=== PATIENT | female | born 1970 | race Caucasian/White ===

== ENCOUNTER → 2016-09-10 | Outpatient (CLI) | payer SELFPAY | LOC: LAB.REF 15:41 | PROVIDERS: ATTEND Internal Medicine | DX: E03.8 Other specified hypothyroidism (principal); E04.2 Nontoxic multinodular goiter ==

== ENCOUNTER → 2017-05-20 | Outpatient (CLI) | payer OTHER ==
--- NOTE | 2017-05-20 12:47 | MRI ---
EXAM DESCRIPTION: Shoulder,Left: MRI. CLINICAL HISTORY: SHOULDER PAIN COMPARISON: None. TECHNIQUE: Multiplanar, high-field MRI, multiple sequences, without contrast: Left shoulder. FINDINGS: Intermediate signal in the distal supraspinatus and infraspinatus insertions. No fluid signal in the proximal tendons. Minimal fluid in the subacromial-subdeltoid bursa. Normal signal in the remaining tendons of the rotator cuff. Cortical erosions on the posterior greater tuberosity and cysts in the posterior subcapital humeral neck. No rotator cuff muscle atrophy. Subcoracoid bursal fluid. Type II curvature of the lateral acromion. Minimal downsloping of the lateral acromion. No significant arthrosis in the AC joint. Minimal flattening of the lateral coracoacromial arch. Coracoid ligaments intact. No glenohumeral joint effusion. Question of a subchondral cyst at the anterior articular surface of the humeral head. No osteochondrosis in the glenoid. Posterior position of the bicipital labral anchor; long head biceps tendon within the bicipital groove. Chondromalacia central glenoid fossa. No labral tear. IMPRESSION: 1. Tendinopathy distal supraspinatus and infraspinatus tendons with no rotator cuff tear. No muscle atrophy. Minimal bursitis subacromial-subdeltoid bursa. 2. Subcoracoid bursitis. Minimal flattening of the lateral coracoacromial arch most likely due to acromion morphology. 3. No glenoid labrum tear. Chondromalacia central glenoid cartilage. Possible subchondral cyst anterior articular surface of the humeral head. If these findings are discordant from clinical findings, consider MR arthrography of the left shoulder. Electronically signed by: Fred Watts MD 05/20/2017 12:46 PM CDT
== END | disposition home or self-care (01) ==
LOC: MRI 06:58
PROVIDERS: ATTEND Nurse Practitioner Family
DX: M75.52 Bursitis of left shoulder (principal); M25.512 Pain in left shoulder

== ENCOUNTER → 2017-07-29 | Outpatient (CLI) | payer OTHER ==
--- NOTE | 2017-08-02 14:06 | RAD ---
EXAM DESCRIPTION: Chest,2 Views CLINICAL HISTORY: ENCOUNTER FOR SCREENING FOR RESPIRATORY TUBERCULOSIS COMPARISON: None Available. TECHNIQUE: PA/lateral FINDINGS: Cardiomediastinal silhouette and pulmonary vascularity are within normal limits. Lungs are clear without cavitary mass lesions nor focal consolidative infiltrates. No pleural effusion. No pneumothorax. Mild degenerative changes of the thoracic spine. IMPRESSION: No radiographic evidence for acute cardiopulmonary process. Electronically signed by: Mathew Crawford MD 08/02/2017 2:05 PM CDT
== END ==
LOC: RAD 15:13
PROVIDERS: ATTEND Nurse Practitioner Family
DX: Z11.1 Encounter for screening for respiratory tuberculosis (principal)

== ENCOUNTER 2017-10-08 14:08 | Emergency (ER) | payer OTHER ==
[2017-10-08 14:44] VITALS: TEMP 98.1
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
[2017-10-08] MEDS ORDERED: ACETAMINOPHEN-CAFF-BUTALBITAL 1 EA TAB PO ONE (16:12)
[2017-10-08] MEDS ORDERED: MAGNESIUM HYDROXIDE 30 ML UD PO ONE (16:12)
[2017-10-08] MEDS ORDERED: predniSONE 20 MG TAB PO ONE (16:12)
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
[2017-10-08 16:48] VITALS: BP 107/68; O2SAT 99
== END 2017-10-08 16:47 | disposition home or self-care (01) ==
LOC: ER 14:08
DX: S16.1XXA Strain of muscle, fascia and tendon at neck level, initial encounter (principal); K59.00 Constipation, unspecified; R51 Headache; R11.0 Nausea; E07.9 Disorder of thyroid, unspecified; V49.59XA Passenger injured in collision with other motor vehicles in traffic accident, initial encounter; Y92.410 Unspecified street and highway as the place of occurrence of the external cause; Z79.899 Other long term (current) drug therapy
CPT/HCPCS: 36415; 72040; 74019; 80053; 81001; 81025; 82150; 83690; 85025; J7512

== ENCOUNTER → 2017-11-07 | Outpatient (CLI) | payer SELFPAY | LOC: YCFC.O 17:10 | DX: F41.1 Generalized anxiety disorder (principal) ==

== ENCOUNTER → 2017-12-02 | Outpatient (CLI) | payer SELFPAY | LOC: YCFC.O 10:23 | DX: R07.89 Other chest pain (principal) ==

== ENCOUNTER 2017-12-08 10:37 | Emergency (ER) | payer SELFPAY ==
[2017-12-08 10:59] VITALS: O2SAT 100
[2017-12-08] MEDS ORDERED: ALUM & MAG HYDROX-SIMETHICONE 30 ML, LIDOCAINE VISCOUS 2% 15 ML PO ONE ×2 (10:59)
--- NOTE | 2017-12-08 11:03 | ED.PDOC ---
History of Present Illness - General Chief Complaint: Chest Pain/OR Stated Complaint: chest discomfort, burning Time Seen by Provider: 12/08/17 10:57 Source: patient Exam Limitations: no limitations - History of Present Illness Timing/Duration: other - 10-12 days Severity/Quality: moderate, pressure, tightness, other - intermittant Location: substernal Chest Pain Radiation: no radiation Activities at Onset: none Prior Chest Pain/Cardiac Workup: no prior chest pain Improving Factors: medication - antacids Worsening Factors: nothing, other - started new Rx Zoloft 2 weeks ago and is under alot of stress in school Nitro Today/Relief: no nitro taken today Aspirin Treatment Today: no aspirin today Associated Symptoms: nausea/vomiting - and some diarrhea 2 days ago, shortness of breath Allergies/Adverse Reactions: Allergies NO KNOWN ALLERGY Allergy (Verified 12/01/14 11:37) Home Medications: Ambulatory Orders Levothyroxine Sodium [Synthroid] 0.025 mg PO 0700 10/08/17 Hydroxyzine HCl 25 mg PO Q8H 12/08/17 Omeprazole Magnesium [Prilosec Otc] 20 mg PO DAILY 12/08/17 Review of Systems - Review of Systems Constitutional: States: chills, malaise EENTM: States: no symptoms reported Respiratory: States: short of breath. Denies: cough Cardiology: States: chest pain. Denies: edema, palpitations Gastrointestinal/Abdominal: States: diarrhea, nausea Genitourinary: States: no symptoms reported Musculoskeletal: States: no symptoms reported Skin: States: no symptoms reported Neurological: States: anxiety, depressed Endocrine: States: no symptoms reported Hematologic/Lymphatic: States: no symptoms reported Past Medical History (General) - Patient Medical History Hx Stroke: No Hx Asthma: No Hx Congestive Heart Failure: No Hx Hypertension: No Hx Thyroid Disease: Yes Hx Diabetes: No Hx Gastroesophageal Reflux: No - Vaccination History Hx Tetanus, Diphtheria Vaccination: Yes Hx Influenza Vaccination: Yes Hx Pneumococcal Vaccination: No - Social History Hx Tobacco Use: No Hx Alcohol Use: Yes - Female History Patient is a Female of Child Bearing Age (10 -59 yrs old): Yes Patient : No Family Medical History - Family History Mother Living Status: Still Living Physical Exam - Physical Exam General Appearance: Alert, Anxious, Comfortable Eyes, Ears, Nose, Throat Exam: PERRL/EOMI, normal ENT inspection, pharynx normal Neck: non-tender, full range of motion, supple Respiratory: lungs clear, normal breath sounds, other - mildly tender chest wall Cardiovascular/Chest: normal peripheral pulses, regular rate, rhythm, no edema Gastrointestinal/Abdominal: normal bowel sounds, non tender, soft, no organomegaly Extremity: normal range of motion, non-tender, normal inspection, no pedal edema Neurologic: alert, oriented x 3 Skin Exam: normal color, warm/dry Lymphatic: no adenopathy Progress - EKG/XRAY/CT EKG: Sinus, no ST T wave changes Comments: rate 70, TX 132, QRS 86 Departure - Departure Clinical Impression: Anxiety Chest pain Qualifiers: Chest pain type: unspecified Qualified Code(s): R07.9 - Chest pain, unspecified Gastroesophageal reflux disease Qualifiers: Esophagitis presence: without esophagitis Qualified Code(s): K21.9 - Gastro- esophageal reflux disease without esophagitis Disposition: Discharge to Home or Self Care Departure Forms: ED Discharge - Pt. Copy, Patient Portal Self Enrollment Instructions: DI for Chest Pain Referrals: KAUSHIK ROBISON IV, ENGINEERING SYSTEMS ANALYST [Primary Care Provider] - 1-2 Weeks Home Medications: Ambulatory Orders Levothyroxine Sodium [Synthroid] 0.025 mg PO 0700 10/08/17 Hydroxyzine HCl 25 mg PO Q8H 12/08/17 Omeprazole Magnesium [Prilosec Otc] 20 mg PO DAILY 12/08/17
[2017-12-08] MEDS ORDERED: LIDOCAINE HCL 2% (MOUTH-THROAT) 15 ML UD ONE (11:09)
[2017-12-08] MEDS ORDERED: ALUM & MAG HYDROX-SIMETHICONE 30 ML UD ONE (11:09)
--- NOTE | 2017-12-08 11:38 | RAD ---
EXAM DESCRIPTION: Chest,1 View CLINICAL HISTORY: 47 years Female, chest pain COMPARISON: 07/29/2017 IMPRESSION: Heart size and pulmonary vascularity are within normal limits. The lungs are mildly hyperexpanded. There is no airspace consolidation, pleural effusion, or pneumothorax. No acute osseous abnormality. Electronically signed by: Gary Miller MD 12/08/2017 11:37 AM CDT
[2017-12-08 12:33] VITALS: BP 116/73; TEMP 98.8
== END 2017-12-08 12:31 | disposition home or self-care (01) ==
LOC: ER 10:37
DX: R07.89 Other chest pain (principal); F41.9 Anxiety disorder, unspecified; K21.9 Gastro-esophageal reflux disease without esophagitis; E07.9 Disorder of thyroid, unspecified

== ENCOUNTER → 2017-12-24 | Outpatient (CLI) | payer OTHER | LOC: YCFC.O 12-23 14:12 | DX: K21.9 Gastro-esophageal reflux disease without esophagitis (principal) ==

== ENCOUNTER 2018-03-18 13:55 | Emergency (ER) | payer SELFPAY ==
[2018-03-18] MEDS ORDERED: LIDOCAINE 1% 10 ML VIAL INJ ONE (14:32)
--- NOTE | 2018-03-18 14:44 | ED.PDOC ---
History of Present Illness - General Chief Complaint: Back Pain or Injury Stated Complaint: back pain Time Seen by Provider: 03/18/18 14:42 Source: patient Exam Limitations: no limitations - History of Present Illness Initial Comments: patient comes in today for right sided low back pain. Patient states a week ago she injured it during a workout after going to the gym for the first time in a long time. Patient states it felt like a tightness with pain just on the right side and it's been there pretty consistently over the past week. However, this morning she got up and the pain was so severe was difficult for her to get out of bed. She denies any radiation, change in sensation, weakness, or loss of bowel or bladder function. She has no past history of back injury. She's been taking 800 mg of [id number] ibuprofen with only minimal improvement. Patient does not have any fever, chills, nausea or vomiting and her only past medical history is hypothyroidism. Timing/Duration: 1 week, constant Quality/Severity: severe Back Pain Location: lumbar spine Back Pain Radiation: other - none Method of Injury/Prior Injury: other - working out Improving Factors: medication - IBU Worsening Factors: movement Associated Symptoms: denies symptoms Allergies/Adverse Reactions: Allergies NO KNOWN ALLERGY Allergy (Verified 12/01/14 11:37) Home Medications: Ambulatory Orders Levothyroxine Sodium [Synthroid] 0.025 mg PO 0700 10/08/17 Cyclobenzaprine HCl [Flexeril] 10 mg PO TID PRN #15 tab 03/18/18 Sertraline HCl [Zoloft] 100 mg PO DAILY 03/18/18 Review of Systems - Review of Systems Constitutional: States: no symptoms reported. Denies: chills, fever, malaise EENTM: States: no symptoms reported. Denies: eye pain, ear pain, nose congestion, throat pain Respiratory: States: no symptoms reported. Denies: cough, short of breath, wheezing Cardiology: States: no symptoms reported Gastrointestinal/Abdominal: States: no symptoms reported. Denies: abdominal meghna n, diarrhea, nausea Musculoskeletal: States: see HPI Past Medical History (General) - Patient Medical History Hx Stroke: No Hx Asthma: No Hx Congestive Heart Failure: No Hx Hypertension: No Hx Thyroid Disease: Yes Hx Diabetes: No Hx Gastroesophageal Reflux: No Surgical History: other - Vaccination History Hx Tetanus, Diphtheria Vaccination: Yes - 2018 Hx Influenza Vaccination: Yes - 2018 Hx Pneumococcal Vaccination: No - Social History Hx Tobacco Use: No Hx Alcohol Use: Yes - Female History Patient is a Female of Child Bearing Age (10 -59 yrs old): Yes Patient : No Family Medical History - Family History Mother Living Status: Still Living Physical Exam - Physical Exam General Appearance: Alert, No apparent distress Eyes, Ears, Nose, Throat Exam: PERRL/EOMI, normal ENT inspection Neck Exam: non-tender, full range of motion, normal alignment Cardiovascular/Respiratory: regular rate, rhythm, no M/R/G, normal peripheral pulses, normal breath sounds, no respiratory distress Gastrointestinal/Abdominal: normal bowel sounds, non tender, soft Back Exam: normal inspection, no CVA tenderness, no vertebral tenderness, muscle spasm - tears to palpation on the right perispinal area of the lumbar sacral spine with trigger point Neurologic: no motor/sensory deficits, alert, oriented x 3 Progress - Progress Progress: 03/18/18 14:45 trigger point with 1 cc of lidocaine was injected onto the right side with good effect and so immediate relief of discomfort. Departure - Departure Clinical Impression: Back pain Qualifiers: Back pain location: low back pain Chronicity: acute Back pain laterality: right Sciatica presence: without sciatica Qualified Code(s): M54.5 - Low back pain Disposition: Discharge to Home or Self Care Condition: Fair Departure Forms: ED Discharge - Pt. Copy, Patient Portal Self Enrollment Instructions: DI for Low Back Pain Referrals: KAUSHIK ROBISON IV, PRECISION FARMING COORDINATOR [Primary Care Provider] - 1-2 Weeks Prescriptions: Cyclobenzaprine HCl [Flexeril] 10 mg PO TID PRN #15 tab PRN Reason: Muscle Spasms Home Medications: Ambulatory Orders Levothyroxine Sodium [Synthroid] 0.025 mg PO 0700 10/08/17 Cyclobenzaprine HCl [Flexeril] 10 mg PO TID PRN #15 tab 03/18/18 Sertraline HCl [Zoloft] 100 mg PO DAILY 03/18/18 Additional Instructions: sedation precautions with the Flexeril. Heat to the area and work excuse for the next 2 days. Slow return to normal activity and easy stretching should be started as pain allows.
[2018-03-18 15:16] VITALS: BP 128/76; TEMP 97.5; O2SAT 97
== END 2018-03-18 14:55 | disposition home or self-care (01) ==
LOC: ER 13:55
DX: M54.5 Low back pain (principal); E03.9 Hypothyroidism, unspecified; Z79.899 Other long term (current) drug therapy